=== PATIENT | male | born 1960 | race American Indian/Alaskan Native ===

== ENCOUNTER 2018-07-18 17:04 | Emergency (ER) | payer OTHER, MEDICAID ==
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
--- NOTE | 2018-07-18 18:58 | Cat Scan Report ---
PROCEDURE: CT HEAD/BRAIN WO CON TECHNIQUE: Computerized tomography of the head was performed without contrast material. CT DOSE LENGTH PRODUCT: 920.48 mGycm HISTORY: head injury COMPARISONS: CT face also performed today . FINDINGS: There is no evidence of an acute intracranial process, intracranial hemorrhage or mass effect. The ventricles are normal size. The visualized portions of the orbits, paranasal and mastoid sinuses are unremarkable. There is no evidence of fracture. There is evidence of a right frontal scalp laceration. IMPRESSION: 1. No evidence of an acute intracranial process, intracranial hemorrhage or mass effect. 2. No evidence of fracture. 3. Right frontal scalp laceration. This document is electronically signed by Chantal Valdivia MD., July 18 2018 06:55:45 PM ET
--- NOTE | 2018-07-18 19:03 | Cat Scan Report ---
PROCEDURE: CT FACIAL BONES WO CON TECHNIQUE: Computerized axial tomography of the orbits was performed without contrast material. Auto mated exposure control, adjustment of mA and/or kV according to patient size, or iterative reconstruc tion dose optimization techniques were utilized. CT DOSE LENGTH PRODUCT: 920.48 mGycm HISTORY: head injury COMPARISONS: PET CT also performed today FINDINGS: There is no evidence of facial fracture. The paranasal sinuses without mucosal thickening or air-fluid levels. The nasal septum is midline. The patient is partially edentulous with evidence of extensive periodontal disease. The orbital contents are unremarkable. There is increased size of the right masseter muscle with overlying soft tissue swelling/hematoma and a small collection of air in the adjacent subcutaneous fat. Visualization of detail of the masseter muscle is limited by streak artifact. An intramuscular hematoma cannot be excluded. The visualized portion of the cervical spine is notable for previous C3-C4 anterior discectomy and fu gladis with retained hardware and spondylotic change of the cervical spine superimposed on what appears to be congenital cervical canal stenosis. IMPRESSION: 1. No evidence of facial fracture. 2. Right facial soft tissue injury with increased size of the right masseter muscle. An intramuscular hematoma cannot be excluded due the presence of artifact. 3. Extensive periodontal disease. 4. Previous C3-C4 anterior discectomy and fusion. 5. Spondylytic change cervical spine superimposed on what appears to be congenital cervical canal miranda nosis. This document is electronically signed by Chantal Valdivia MD., July 18 2018 07:01:40 PM ET
[2018-07-18] MEDS ORDERED: NORCO 7.5/325 PO ONE (19:24)
[2018-07-18 19:55] VITALS: BP 138/82
== END 2018-07-18 19:56 | disposition home or self-care (01) ==
LOC: ED 17:04
DX: S01.01XA Laceration without foreign body of scalp, initial encounter (principal); Y04.2XXA Assault by strike against or bumped into by another person, initial encounter; Y93.89 Activity, other specified; Y92.89 Other specified places as the place of occurrence of the external cause; Y99.8 Other external cause status
CPT/HCPCS: 70450; 70486; 99283

== ENCOUNTER 2021-11-24 09:11 | Emergency (ER) | payer MEDICAID, OTHER ==
[2021-11-24] MEDS ORDERED: SODIUM CHLORIDE 0.9% 1000 ML 1,000 ML IV ONE (09:26)
[2021-11-24 09:27] VITALS: BP 139/96
--- NOTE | 2021-11-24 09:28 | Event Note ---
ED Screening Note ED Screening Note: N/V/D WEIGHT LOSS DAILY ETOH COLONOSCOPY 2 Y AGO- NORMAL NO HOME MEDS This initial assessment/diagnostic orders/clinical plan/treatment(s) is/are subject to change based on patients health status, clinical progression and re- assessment by fellow clinical providers in the ED. Further treatment and workup at subsequent clinical providers discretion. Patient/guardian urged not to elope from the ED as their condition may be serious if not clinically assessed and managed. Initial orders include: LABS/UA
[2021-11-24 10:33] LABS: Bacteria,Urine 1+ /HPF (Negative); Mucus,Urine 3+ /HPF; WBC,Urine < 1.0 /HPF (0.0-6.0)
[2021-11-24 10:34] LABS: Basophils % (Auto) 0.1 % (0.0-1.8); Eosinophils % (Auto) 0.4 % (0.0-4.3); Hematocrit 45.9 % (35.5-45.6); Hemoglobin 15.6 gm/dl (11.8-15.2); Lymphocytes # (Auto) 1.7 K/mm3 (1.2-5.4); Lymphocytes % (Auto) 41.9 % (13.4-35.0); Mean Corpuscular HGB Conc 34 % (32-34); Mean Corpuscular Volume 98 fl (84-94); Monocytes # (Auto) 0.5 K/mm3 (0.0-0.8); Monocytes % (Auto) 13.1 % (0.0-7.3); Platelet Count 206 K/mm3 (140-440); Red Blood Count 4.66 M/mm3 (3.65-5.03); Red Cell Distribution Width 14.2 % (13.2-15.2)
[2021-11-24 10:45] LABS: Alanine Aminotransferase 11 units/L (7-56); Albumin 4.8 g/dL (3.9-5); BUN/Creatinine Ratio 13; Blood Urea Nitrogen 12 mg/dL (9-20); Calcium 9.7 mg/dL (8.4-10.2); Hemolysis Index 9
[2021-11-24 10:47] LABS: INR 0.84 (0.87-1.13)
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
--- NOTE | 2021-11-24 11:55 | XRay Report ---
CHEST 2 VIEWS INDICATION / CLINICAL INFORMATION: left chest /flank pain. COMPARISON: None available. FINDINGS: SUPPORT DEVICES: None. HEART / MEDIASTINUM: No significant abnormality. LUNGS / PLEURA: No significant pulmonary or pleural abnormality. No pneumothorax. ADDITIONAL FINDINGS: No significant additional findings. IMPRESSION: 1. No acute findings. Signer Name: Shyam Jean Jr, MD Signed: 11/24/2021 11:50 AM Workstation Name: [id number]
[2021-11-24 12:13] LABS: Bilirubin,Urine Negative (Negative); Color,Urine Yellow (Yellow)
[2021-11-24 12:14] LABS: Blood,Urine Moderate (Negative); Urobilinogen,Urine < 2.0 mg/dL (<2.0)
--- NOTE | 2021-11-24 17:59 | Electrocardiograph Report ---
[facility] Test Date: 2021-11-24 Test Time: 12:42:58 Pat Name: JOE VERA Department: Room: Gender: M [employer] Worker: GYPSY : 1960 Requested By: DA SALAS Order Number: [id number] Reading MD: Matias Anderson Measurements Intervals [place] Rate: 72 P: 74 MA: 144 QRS: 74 QRSD: 73 T: -33 QT: 356 QTc: 389 Interpretive Statements Sinus rhythm Nonspecific T abnormalities, lateral leads No previous ECG available for comparison Electronically Signed On 11-24-2021 17:59:07 EDT by Matias Anderson
== END 2021-11-24 15:00 | disposition home or self-care (01) ==
LOC: ED 09:11
DX: R07.9 Chest pain, unspecified (principal)
CPT/HCPCS: 36415; 71046; 80053; 81001; 83690; 85025; 85610; 93005; 99283; 99284